=== PATIENT | male | born 1980 | race American Indian/Alaskan Native ===

== ENCOUNTER 2016-08-10 20:43 | Emergency (ER) | payer SELFPAY ==
[2016-08-10] MEDS ORDERED: DILAUDID IV ONE (20:54)
[2016-08-10] MEDS ORDERED: ZOFRAN IV ONE (20:54)
[2016-08-10] MEDS ORDERED: NACL 0.9% 1000 ML 1,000 ML IV ONE (20:54)
[2016-08-10 21:09] LABS: Hematocrit 50.3 % (35.5-45.6); Hemoglobin 16.5 gm/dl (11.8-15.2); Mean Corpuscular HGB Conc 33 % (32-34); Mean Corpuscular Hemoglobin 28 pg (28-32); Mean Corpuscular Volume 84 fl (84-94); Platelet Count 324 K/mm3 (140-440); Red Blood Count 5.97 M/mm3 (3.65-5.03); Red Cell Distribution Width 13.5 % (13.2-15.2); White Blood Count 16.2 K/mm3 (4.5-11.0)
[2016-08-10 21:20] LABS: INR 0.98 (0.87-1.13); Partial Thromboplastin Time 23.1 Sec. (24.2-36.6)
--- NOTE | 2016-08-10 21:32 | Cat Scan Report ---
FINAL REPORT PROCEDURE: CT HEAD/BRAIN WO CON TECHNIQUE: Computerized tomography of the head was performed without contrast material. HISTORY: Trauma COMPARISON: No prior studies are available for comparison. FINDINGS: Skull and scalp: There is focal left frontal scalp laceration and swelling. There is no hematoma.. Paranasal sinuses: There is fluid in the sphenoid sinus.. Ventricles and subarachnoid spaces: Normal. Cerebrum: No evidence of hemorrhage, acute infarction or mass . Cerebellum and brainstem: No evidence of hemorrhage, acute infarction or mass. Vasculature: Normal. Comments: None. IMPRESSION: Left frontal scalp laceration and swelling. There is no skull fracture. There is no intracranial hemorrhage. There is sphenoid sinusitis.
[2016-08-10] MEDS ORDERED: XYLOCAINE 1%/ EPI 1:100,000 INFILTRATI ONE (21:38)
[2016-08-10 21:44] LABS: Alanine Aminotransferase 24 units/L (7-56); Albumin 4.5 g/dL (3.9-5); Albumin/Globulin Ratio 1.4 %; Alkaline Phosphatase 57 units/L (35-129); Anion Gap 19 mmol/L; Blood Urea Nitrogen 10 mg/dL (9-20); Carbon Dioxide 23 mmol/L (22-30); Chloride 102.5 mmol/L (98-107); Glucose 101 mg/dL (75-100); Potassium 3.7 mmol/L (3.6-5.0); Sodium 141 mmol/L (137-145); Total Protein 7.7 g/dL (6.3-8.2)
[2016-08-10] MEDS ORDERED: NACL 0.9% 500 ML IR ONE (21:54)
[2016-08-10 21:56] LABS: Basophils % (Manual) 0 % (0.0-1.8); Blastocytes % (Manual) 0 %
[2016-08-10 21:57] LABS: Diff Status Complete; RBC Morphology Normal
[2016-08-10 23:41] VITALS: BP 94/45
[2016-08-10] MEDS ORDERED: NACL 0.9% IR ONE (23:41)
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
== END 2016-08-11 00:41 | disposition other institution (70) ==
LOC: ED 20:43
DX: S06.0X1A Concussion with loss of consciousness of 30 minutes or less, initial encounter (principal); S01.312A Laceration without foreign body of left ear, initial encounter; S01.81XA Laceration without foreign body of other part of head, initial encounter; F17.200 Nicotine dependence, unspecified, uncomplicated; W22.8XXA Striking against or struck by other objects, initial encounter; Y93.89 Activity, other specified; Y99.8 Other external cause status; Y92.39 Other specified sports and athletic area as the place of occurrence of the external cause
CPT/HCPCS: 12053; 36415; 70450; 80053; 85007; 85025; 85610; 85730; 86850; 86900; 86901; 96361; 96374; 96375; 99291; G0480; J1170; J2405; J7030; 80320